=== PATIENT | male | born 1940 | race Caucasian/White ===

== ENCOUNTER → 2016-07-03 | Outpatient (CLI) | payer MEDICARE, OTHER ==
--- NOTE | 2016-07-03 11:08 | FL ---
ESOPHOGRAM. HISTORY: Dysphagia Esophagram was performed per the air contrast technique. The patient swallowed barium and effervesce nt crystals without difficulty or delay. Esophageal peristalsis and motility appear to be within normal limits. There is no evidence for filling defect or mass. 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 Subsequently single contrast cervical esophagram was performed which demonstrates deep penetration wi th mild aspiration. Hypertrophy of the cricopharyngeus musculature is noted. IMPRESSION: 1.Deep penetration with mild aspiration. 2.Hypertrophy of the cricopharyngeus musculature is noted. 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
--- NOTE | 2016-07-03 11:43 | ECHOS ---
DATE OF SERVICE: 07/03/2016 AGE: 75Y SEX: M HT: 74" WT: 205 lbs. Protocol Dawson: X Others: Stress Echo Stage: 2 Dur. of Exercise: 5:00 *Heart Rate Blood Pressure *Rest: 69 Rest: 154/61 * *Max. Achieved: 137 Maximum BP: 196/75 85% PMHR: 124 100% PMHR: 146 *METS: 6.3 INDICATIONS: Chest pain. MEDICATIONS: Aspirin. The test is being done to evaluate cardiac status and chest pains. Baseline EKG showed sinus rhythm with normal MS interval and QRS duration. Blood pressure at rest is 154/61 with a pulse rate of 69. Patient walked on the Dawson protocol for 5 minutes achieving a maximum heart rate of 137 with blood pressure of 196/75. ECHO DATA: Baseline echo images show normal wall motion and thickening. Exercise echo images showed augmentation of the wall motion and thickening in all the segments. FINAL IMPRESSION: 1. Negative stress test. 2. Negative stress echo.
== END | disposition home or self-care (01) ==
LOC: RADNMMAIN 09:10
PROVIDERS: ATTEND Family Medicine
DX: R07.9 Chest pain, unspecified (principal); K44.9 Diaphragmatic hernia without obstruction or gangrene; K22.5 Diverticulum of esophagus, acquired
CPT/HCPCS: 74220; 93017; 93225; 93226; 93350

== ENCOUNTER 2017-02-27 10:25 | Day surgery (SDC) | payer MEDICARE, OTHER ==
[2017-02-25 09:25] VITALS: BMI 25.9
[~2017-02-27 10:25] MED LIST: DEXAMETHASONE SOD PHOSPHATE 10 MG/ML 1 ML VIAL IV ONE; DEXAMETHASONE SOD PHOSPHATE 4 MG/ML 1 ML VIAL IV ONE; FAMOTIDINE 20 MG/2 ML VIAL IV ONE; HYDROmorphone 1 MG/ML 1 ML SYRINGE IVP PRN; LACTATED RINGERS 1,000 ML IV SCH; ONDANSETRON 4 MG/2 ML VIAL IVP ONE; Pre Op ABX Message 1 EACH MISC MISCELLANE ONE
[2017-02-27] MEDS ORDERED: LIDOCAINE 1% 20 ML VIAL (10MG/ML) FOR IV START INTRADERMA ONE (11:24)
[2017-02-27] MEDS ORDERED: MIDAZOLAM 2 MG/2 ML VIAL ONE (13:26)
[2017-02-27] MEDS ORDERED: PROPOFOL 10 MG/ML 20 ML VIAL IV ONE (13:26)
[2017-02-27] MEDS ORDERED: ePHEDrine SULFATE/0.9% NACL/PF 50 MG/5 ML SYRINGE IV ONE (13:26)
[2017-02-27] MEDS ORDERED: SUCCINYLCHOLINE CHLORIDE 100 MG/5 ML SYR IV ONE (13:26)
[2017-02-27] MEDS ORDERED: fentaNYL (PF) 50 MCG/ML 2 ML AMP ONE (13:26)
[2017-02-27] MEDS ORDERED: LIDOCAINE 1% INJ 10MG/ML (20 ML MDV) ONE (13:26)
[2017-02-27] MEDS ORDERED: DEXAMETHASONE SOD PHOS (MDV) 100 MG/10 ML VIAL ONE (13:26)
[2017-02-27] MEDS ORDERED: LACTATED RINGERS 1,000 ML IV ONE (13:50)
[2017-02-27] MEDS ORDERED: LIDOCAINE 2%-EPI 1:100,000 20 ML VIAL SQ ONE (13:58)
[2017-02-27] MEDS ORDERED: BACITRACIN 500 UNIT/GM OINT 28.4 GM TUBE TOPICAL ONE (14:11)
[2017-02-27 15:06] VITALS: TEMP 97.4
[2017-02-27] MEDS ORDERED: hydrALAZINE HCL 20 MG/ML 1 ML VIAL IVP PRN (15:13)
[2017-02-27] MEDS ORDERED: ENALAPRILAT 1.25 MG/ML 1 ML VIAL IVP STA (15:13)
[2017-02-27] MEDS ORDERED: LABETALOL 5 MG/ML VIAL MDV IVP STA (15:15)
[2017-02-27] MEDS ORDERED: LABETALOL SYRINGE 5 MG/ML IVP ONE (15:20)
--- NOTE | 2017-02-27 15:36 | P.OP ---
Date of Procedure: 02/27/17 Preoperative Diagnosis: 2.2 cm right neck lesion 2.3 cm left holiness lesion Dysphagia Nasopharyngeal mass Cricopharyngeal achlasia Postoperative Diagnosis: Same Procedure(s) Performed: Excision of a 2.3 cm left holiness lesion and a 2.2 cm right neck lesion with complex closure Direct microscopic laryngoscopy with biopsy, post cricoid Esophagoscopy with dilitation Endoscopic biopsy of nasopharyx with cautery. Anesthesia: GETA Surgeon: Mauri Payan Estimated Blood Loss (ml): 20 Pathology: other (skin lesions and post cricoid space) Condition: stable Disposition: PACU Indications for Procedure: This patient has 2 lesions that are growing changing. One is of the left holiness was of the right posterior neck and he would like to have them removed. Patient also has some significant dysphagia from achalasia and a dilatation and examination is recommended with a possible biopsy. 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 Surgical removal for biopsy purposes and electrofulguration is advised. All risks, benefits, and alternative therapies were discussed in detail. Consent was obtained and all questions were answered. Operative Findings: Bilateral skin lesions left holiness right neck along with inflammation the postcricoid space and a tight cricopharyngeus. Nasopharyngeal ulceration seen which was biopsied electrofulgurated. Description of Procedure: This patient was taken to the operative room and placed in the supine position. A general inhalation anesthetic was administered the patient by mask and subsequently intubated with a cuffed endotracheal tube by the department of anesthesia with a functioning IV line in place. The patient was monitored throughout the entire case by the department of anesthesia. These 2 lesions were marked left holiness right neck the left holiness lesion measured 2.3 cm right neck lesion measured 2.2 cm there were removed with a 15 blade delicate plastic scissors and a Brown-Adsalissa forceps. We sent him for permanent section. We did extensive undermining in all directions. After we did extensive undermining in all directions we removed redundant skin and prepped the skin edges. We closed the deep subcutaneous tissue with 4-0 Monocryl we closed the deep dermal layer with 4-0 Monocryl we closed the mid dermal layer with 4-0 Monocryl and closed the skin with a 5-0 Prolene. Excellent approximation was obtained this was done on both lesions and the exact same fashion. Steri-Strips were applied. Attention was then paid to the mouth where tooth guard was placed and a Jako laryngoscope was placed into the patient's mouth with care to avoid any trauma to the lips teeth gums and tongue ulcers open tongue was depressed and the entire Jose and hypopharynx was evaluated including the posterior pharynx lateral pharynx base of tongue vallecula epiglottis etc. after examination under microscopic visualization we did a biopsy the postcricoid space. Instrumentation was removed and an esophagoscope was inserted and the entire length of the esophagus was evaluated from the upper esophageal sphincter to the lower esophageal sphincter. The upper esophageal sphincter the cricopharyngeus muscle was extremely tight the scope was removed and we did bougienage location. After the upper esophagus underwent a bougienage. And instrumentation was removed, attention was then paid to the nasopharynx were with use of an endoscope we visualize the nasopharynx and found there to be an ulcer which was biopsied. With use of suction coagulation that whole area was electrofulgurated. The patient tolerated this well and follow-up will be in the office in 1 week for recheck the patient is to contact me if any problems should arise.
[2017-02-27] MEDS ORDERED: LABETALOL 5 MG/ML VIAL MDV IV ONE (16:19)
[2017-02-27 16:26] VITALS: RESP 18
[2017-02-27] MEDS ORDERED: hydrALAZINE HCL 20 MG/ML 1 ML VIAL IV ONE (17:05)
[2017-02-27] MEDS ORDERED: IBUPROFEN 600 MG TAB PO STA (17:20)
[2017-02-27 17:58] VITALS: BP 157/76; PULSE 79
--- NOTE | 2017-03-05 14:02 | CDI ---
Dear Dr. Payan, Please provide clarification of the length of the complex repair for both the neck and presybeterian lesions. The report states that extensive undermining was performed along with removing redundant skin which fits the description of complex repair. In order to provide the correct coding, please provide clarification. PLEASE RESPOND TO THIS QUERY BY DICTATING AN ADDENDUM TO YOUR OPERATIVE REPORT. Thank you for your assistance, CATIE Gore If you have any questions, please contact Heddler, Nikki Delong at [facility]
--- NOTE | 2017-03-25 05:47 | CDI ---
Dear Dr. Payan, Please provide clarification of the length of the complex repair for both the neck and jew lesions. The reort states that extensive underminng was performed along with removing redundant skin which fits the description of complex repair. In order to provide the corection coding, please provide clarification. PLEASE RESPOND TO THIS QUERY BY DICTATING AN ADDENDUM TO YOUR OPERATIVE REPORT. Thank you for your assistance, CATIE Gore If you have any questions, please contact Head Men'S Golf Coach, Nikki Delong at [phone] [facility]
--- NOTE | 2017-04-12 06:05 | CDI ---
Dear Dr. Payan, Please provide clarification of the length of the complex repair for both the neck and yazidi lesions. The report states that extensive undermining was performed along with removing redundant skin which fits the description of complex repair. In order to provide the correction coding, please provide clarification. PLEASE RESPOND TO THIS QUERY BY DICTATING AN ADDENDUM TO YOUR OPERATIVE REPORT. Thank you for your assistance, CATIE Gore If you have any questions, please contact Carding Supervisor, Nikki Delong at [phone] [facility]
--- NOTE | 2017-04-12 14:01 | OP ---
OPERATIVE REPORT ADDENDUM: DATE OF SERVICE: February 27, 2017. OPERATIVE NOTE ADDENDUM: This patient had 2 lesions removed, 1 was from the right neck and 1 was from the left alevism. The right neck lesion measured 2.2 x 1 cm. This underwent excision with a 15 blade. We did extensive undermining in all directions. We prepped the skin edges and closed this in a complex fashion after extensive undermining. We closed this with several layer closure utilizing 4-0 Monocryl in the subcutaneous tissue 4-0 Monocryl in a deep dermal layer, 4-0 Monocryl in the mid dermal layer and closed with a nylon superficially. The left alevism lesion measured 2.3 x 1.5 cm. We also excised this with a 15 blade delicate plastic scissors and Brown Adson forceps. We did extensive undermining in all directions. We closed the deep dermal layer in the same fashion as the previous lesion that was closed. Excellent approximation was obtained. The patient tolerated that well. Wound care instructions were given to her. Steri-Strips were applied. MMODL / IJN: [id number] /
== END 2017-02-27 18:06 | disposition home or self-care (01) ==
LOC: OR 10:25
PROVIDERS: ATTEND Otolaryngology
DX: D23.39 Other benign neoplasm of skin of other parts of face (principal); L57.0 Actinic keratosis; L57.8 Other skin changes due to chronic exposure to nonionizing radiation; L81.4 Other melanin hyperpigmentation; K22.0 Achalasia of cardia; J39.2 Other diseases of pharynx; I48.91 Unspecified atrial fibrillation; I10 Essential (primary) hypertension; E78.00 Pure hypercholesterolemia, unspecified; K21.9 Gastro-esophageal reflux disease without esophagitis; Z79.82 Long term (current) use of aspirin; Z79.2 Long term (current) use of antibiotics; Z79.52 Long term (current) use of systemic steroids; Z79.899 Other long term (current) drug therapy; Z88.1 Allergy status to other antibiotic agents; Z88.5 Allergy status to narcotic agent; Z88.0 Allergy status to penicillin; Z91.011 Allergy to milk products; Z91.09 Other allergy status, other than to drugs and biological substances
CPT/HCPCS: 31535; 43220; 11443 ×2; 13132; 88305; J2250; J0360; J1100 ×2; J2405; J2001; J3010; J0330; J2704

== ENCOUNTER 2017-10-07 06:43 | Day surgery (SDC) | payer MEDICARE, OTHER ==
[2017-09-30 15:09] VITALS: BMI 25.7
[~2017-10-07 06:43] MED LIST changes: -DEXAMETHASONE SOD PHOSPHATE 10 MG/ML 1 ML VIAL IV ONE; -DEXAMETHASONE SOD PHOSPHATE 4 MG/ML 1 ML VIAL IV ONE; -FAMOTIDINE 20 MG/2 ML VIAL IV ONE; -HYDROmorphone 1 MG/ML 1 ML SYRINGE IVP PRN; +LIDOCAINE 1% 20 ML VIAL (10MG/ML) FOR IV START INTRADERMA PRN; -ONDANSETRON 4 MG/2 ML VIAL IVP ONE; -Pre Op ABX Message 1 EACH MISC MISCELLANE ONE
[2017-10-07 07:14] VITALS: RESP 16; TEMP 99
[2017-10-07] MEDS: PHENYLEPHRINE 10% OPHTH DROPS 5 ML BTL OP ONE ×3 (07:20→07:41)
[2017-10-07] MEDS: CYCLOPENTOLATE 1% OPHTH SOLN 2 ML BTL OP ONE ×3 (07:27→07:45)
[2017-10-07] MEDS ORDERED: LIDOCAINE 1% 20 ML VIAL (10MG/ML) FOR IV START INTRADERMA ONE (07:28)
[2017-10-07] MEDS: FLURBIPROFEN 0.03% OPHTH DROPS 2.5 ML BTL OP ONE ×3 (07:30→07:55)
[2017-10-07] MEDS ORDERED: MIDAZOLAM 2 MG/2 ML VIAL IV ONE (07:56)
[2017-10-07] MEDS ORDERED: LACTATED RINGERS 1,000 ML IV ONE (08:09)
[2017-10-07] MEDS ORDERED: PROPOFOL 10 MG/ML 20 ML VIAL IV ONE (08:11)
[2017-10-07] MEDS ORDERED: EPINEPHrine (PF) 0.5 ML in BALANCED SALT IRRIG SOLN COMB2 500 ML IRRIGATION ONE (08:24)
[2017-10-07] MEDS ORDERED: HYALURONATE SODIUM INTRAOCULAR 1 EACH SYRINGE (10MG/ML) INTRAOCULA ONE (08:24)
[2017-10-07] MEDS ORDERED: BALANCED SALT IRRIG SOLN COMB2 15 ML IRRIG.SOLN INTRAOCULA ONE (08:24)
--- NOTE | 2017-10-07 08:32 | P.OP ---
Date of Procedure: 10/07/17 Procedure(s) Performed: PREOPERATIVE DIAGNOSIS: Cataract, left eye. POSTOPERATIVE DIAGNOSIS: Cataract, leftl eye. OPERATION: Phacoemulsification cataract, left] eye. DESCRIPTION OF PROCEDURE: The patient was taken to the preoperative holding area. Intravenous Propofol was given so as to bring about adequate sedation. The following mixture was given for local anesthesia: 5 mL of 2% lidocaine, 5 mL of 0.75% Marcaine, and 1 mL of Wydase. Approximately 4 mL was injected in the retrobulbar space of the surgical eye. Additional 1 mL was then directed to the temporal area of the surgical eye. This was performed to allow adequate neurological block of the facial muscles. The patient was revived and then taken into the operative room. The patient was prepped and draped in the usual sterile manner for the operative eye. A lid speculum was put into position. The conjunctiva was resected back from the limbus in the 12 o'clock position. Bleeding was controlled with electrocautery. A #69 blade was then used and a half-thickness scleral incision approximately 1-mm posterior to the limbus was made on bare sclera. This was shelved in the clear cornea using a crescent knife. Next a 15-degree blade was used to make a stab incision at the 3 o' clock position at the corneolimbal interface. Keratome blade was then used and the superior wound was extended into the anterior chamber. Viscoelastic was injected into the anterior chamber and to maintain its form. Next, a cystotome was used and a continuous anterior capsulotomy was made without difficulty. Hydrodissection using a blunt cannula and BSS was performed. Phaco probe was then employed and a groove extending from 12 to 6 o'clock in the lens was created. A Mariusz wand was used through the stab incision so as to perform a divide and conquer technique. Next an irrigation aspiration probe was utilized and any residual cortex was removed from the eye. Again, viscoelastic was injected into the anterior chamber. An Gustavo posterior chamber lens implant was placed in the cartridge and injected into the anterior chamber without difficulty. The Sinskey hook was utilized to spin the lens into position and this was again performed without any difficulty. The irrigation and aspiration probe was again employed and any residual viscoelastic was removed from the eye. Then BSS was injected into the limbal stab incision and the anterior chamber re-inflated. The conjunctiva was reapproximated using electrocautery. One drop of 0.25% Timoptic was placed over the corneal along with TobraDex ophthalmic ointment. Two sterile patches and a Guzman eye shield were taped into position. The patient was transported to the recovery room in stable condition. Pathology: none sent Condition: stable Disposition: same day
[2017-10-07 08:53] VITALS: BP 198/98; PULSE 60
[2017-10-07] MEDS ORDERED: BUPIVACAINE (PF) 0.75% 5 ML, HYALURONIDASE, HUMAN RECOMB 150 UNIT, LIDOCAINE 2% (PF) 10... MISCELLANE ONE ×3 (23:00)
[2017-10-07] MEDS ORDERED: GENTAMICIN/PREDNISOL AC OPHTH OINT 3.5GM OPHTHALMIC ONE (23:00)
[2017-10-07] MEDS ORDERED: TIMOLOL 0.5% OPHTH DROPS 5 ML BTL OP ONE (23:00)
== END 2017-10-07 09:10 | disposition home or self-care (01) ==
LOC: OR 06:43
PROVIDERS: ATTEND Ophthalmology
DX: H25.12 Age-related nuclear cataract, left eye (principal); I10 Essential (primary) hypertension; E78.5 Hyperlipidemia, unspecified; K21.9 Gastro-esophageal reflux disease without esophagitis; Z79.82 Long term (current) use of aspirin; Z79.899 Other long term (current) drug therapy; Z88.1 Allergy status to other antibiotic agents; Z88.0 Allergy status to penicillin; Z88.5 Allergy status to narcotic agent
CPT/HCPCS: 66984; V2632; J2250; J3470; J2001; J0171; J2704

== ENCOUNTER 2017-11-11 06:48 | Day surgery (SDC) | payer MEDICARE, OTHER ==
[2017-11-04 11:32] VITALS: BMI 25.5
[~2017-11-11 06:48] MED LIST changes: +GENTAMICIN/PREDNISOL AC OPHTH OINT 3.5GM OPHTHALMIC ONE; -LIDOCAINE 1% 20 ML VIAL (10MG/ML) FOR IV START INTRADERMA PRN; +TIMOLOL 0.5% OPHTH DROPS 5 ML BTL OP ONE
[2017-11-11 07:12] VITALS: TEMP 97.6
[2017-11-11] MEDS: PHENYLEPHRINE 10% OPHTH DROPS 5 ML BTL OP ONE ×4 (07:15→07:42)
[2017-11-11] MEDS: CYCLOPENTOLATE 1% OPHTH SOLN 2 ML BTL OP ONE ×3 (07:18→07:44)
[2017-11-11] MEDS: FLURBIPROFEN 0.03% OPHTH DROPS 2.5 ML BTL OP ONE ×3 (07:27→07:49)
[2017-11-11] MEDS ORDERED: LABETALOL 5 MG/ML VIAL MDV IV ONE (07:35)
[2017-11-11] MEDS: BUPIVACAINE (PF) 0.75% 5 ML, HYALURONIDASE, HUMAN RECOMB 150 UNIT, LIDOCAINE 2% (PF) 10... MISCELLANE ONE ×6 (08:27→08:35)
[2017-11-11] MEDS ORDERED: BALANCED SALT IRRIG SOLN COMB2 15 ML IRRIG.SOLN IRRIGATION ONE (08:27)
[2017-11-11] MEDS ORDERED: HYALURONATE SODIUM INTRAOCULAR 1 EACH SYRINGE (10MG/ML) INTRAOCULA ONE (08:27)
[2017-11-11] MEDS ORDERED: PROPOFOL 10 MG/ML 20 ML VIAL IV ONE (08:29)
[2017-11-11] MEDS ORDERED: EPINEPHrine (PF) 0.5 ML in BALANCED SALT IRRIG SOLN COMB2 500 ML IRRIGATION ONE (08:32)
--- NOTE | 2017-11-11 08:52 | P.OP ---
Date of Procedure: 11/11/17 Procedure(s) Performed: PREOPERATIVE DIAGNOSIS: Cataract, right eye. POSTOPERATIVE DIAGNOSIS: Cataract, right eye. OPERATION: Phacoemulsification cataract, right eye. DESCRIPTION OF PROCEDURE: The patient was taken to the preoperative holding area. Intravenous Propofol was given so as to bring about adequate sedation. The following mixture was given for local anesthesia: 5 mL of 2% lidocaine, 5 mL of 0.75% Marcaine, and 1 mL of Wydase. Approximately 4 mL was injected in the retrobulbar space of the surgical eye. Additional 1 mL was then directed to the temporal area of the surgical eye. This was performed to allow adequate neurological block of the facial muscles. The patient was revived and then taken into the operative room. The patient was prepped and draped in the usual sterile manner for the operative eye. A lid speculum was put into position. The conjunctiva was resected back from the limbus in the 12 o'clock position. Bleeding was controlled with electrocautery. A #69 blade was then used and a half-thickness scleral incision approximately 1-mm posterior to the limbus was made on bare sclera. This was shelved in the clear cornea using a crescent knife. Next a 15-degree blade was used to make a stab incision at the 3 o' clock position at the corneolimbal interface. Keratome blade was then used and the superior wound was extended into the anterior chamber. Viscoelastic was injected into the anterior chamber and to maintain its form. Next, a cystotome was used and a continuous anterior capsulotomy was made without difficulty. Hydrodissection using a blunt cannula and BSS was performed. Phaco probe was then employed and a groove extending from 12 to 6 o'clock in the lens was created. A Mariusz wand was used through the stab incision so as to perform a divide and conquer technique. Next an irrigation aspiration probe was utilized and any residual cortex was removed from the eye. Again, viscoelastic was injected into the anterior chamber. An Gustavo posterior chamber lens implant was placed in the cartridge and injected into the anterior chamber without difficulty. The [employer] hook was utilized to spin the lens into position and this was again performed without any difficulty. The irrigation and aspiration probe was again employed and any residual viscoelastic was removed from the eye. Then BSS was injected into the limbal stab incision and the anterior chamber re-inflated. The conjunctiva was reapproximated using electrocautery. One drop of 0.25% Timoptic was placed over the corneal along with TobraDex ophthalmic ointment. Two sterile patches and a Guzman eye shield were taped into position. The patient was transported to the recovery room in stable condition. Pathology: none sent Condition: stable Disposition: same day
[2017-11-11 08:59] VITALS: RESP 18
[2017-11-11] MEDS ORDERED: hydrALAZINE HCL 20 MG/ML 1 ML VIAL IVP ONE (09:27)
[2017-11-11 10:19] VITALS: BP 208/97; PULSE 59
== END 2017-11-11 10:29 | disposition home or self-care (01) ==
LOC: OR 06:48
PROVIDERS: ATTEND Ophthalmology
DX: H25.11 Age-related nuclear cataract, right eye (principal); H18.51 Endothelial corneal dystrophy; I10 Essential (primary) hypertension; E78.5 Hyperlipidemia, unspecified; Z87.891 Personal history of nicotine dependence; I48.91 Unspecified atrial fibrillation; K21.9 Gastro-esophageal reflux disease without esophagitis; Z79.899 Other long term (current) drug therapy; Z88.1 Allergy status to other antibiotic agents; Z88.0 Allergy status to penicillin
CPT/HCPCS: 66984; V2632; J3470; J0360; J2001; J0171; J2704

== ENCOUNTER → 2017-12-11 | Outpatient (CLI) | payer MEDICARE, OTHER ==
--- NOTE | 2017-12-11 11:20 | ECHOS ---
STRESS ECHOCARDIOGRAM DATE OF SERVICE: 12/11/2017 INDICATIONS: Hypertension. MEDICATIONS: BASELINE HEART RATE: 70 BASELINE BLOOD PRESSURE: 123/87 MAXIMUM HEART RATE: 135 MAXIMUM BLOOD PRESSURE: 184/61 85% MPHR: 122 100% MPHR: 144 METS: 7.3 MAXIMUM STAGE REACHED: II TOTAL EXERCISE TIME: 6 minutes CLINICAL INFORMATION: Baseline EKG revealed normal sinus rhythm without significant ST-T changes. Patient walked on a standard Dawson protocol for 6 minutes, achieved a maximal heart rate of 135 beats per minute. Developed fatigue and shortness of breath, but did not have angina or arrhythmia. EKG did not reveal any ST-segment changes to indicate ischemia. By EKG criteria, this is a negative stress test with limited exercise capacity with rare isolated PVCs. Baseline echo images revealed normal wall motion and wall thickening of all segments. At peak exercise there was good augmentation of left ventricular wall motion and wall thickening of all segments suggesting that there is no evidence of stress-induced ischemia on this study. FINAL IMPRESSION: 1. Fair exercise capacity with a negative stress test by EKG criteria. 2. Negative stress echocardiogram. MMODL / IJN: [id number] /
== END | disposition home or self-care (01) ==
LOC: RADNMMAIN 09:32
PROVIDERS: ATTEND Family Medicine
DX: R06.02 Shortness of breath (principal); R07.9 Chest pain, unspecified; I10 Essential (primary) hypertension; Z88.0 Allergy status to penicillin; Z88.3 Allergy status to other anti-infective agents
CPT/HCPCS: 93351

== ENCOUNTER → 2018-02-05 | Outpatient (CLI) | payer MEDICARE, OTHER ==
--- NOTE | 2018-02-05 11:02 | US ---
EXAMINATION TYPE: US kidneys/renal and bladder DATE OF EXAM: 02/05/2018 COMPARISON: US CLINICAL HISTORY: N28.9 Known Renal Disease. Renal disease EXAM MEASUREMENTS: Right Kidney: 11.1 x 5.7 x 5.6 cm Left Kidney: 12.7 x 5.8 x 5.4 cm Right Kidney: Mild hydro Left Kidney: Mild hydro Bladder: [place] distended Bilateral Jets seen: No Normal Post Void Residual: No, 710 ml No nephrolithiasis is seen. No masses are identified. The urinary bladder is anechoic. Bilateral ureteral jets are seen. IMPRESSION: 1 mild bilateral hydronephrosis noted of uncertain etiology.
== END | disposition home or self-care (01) ==
LOC: RADUSWWP 09:51
PROVIDERS: ATTEND Family Medicine
DX: N13.30 Unspecified hydronephrosis (principal)
CPT/HCPCS: 76770

== ENCOUNTER → 2018-03-12 | Outpatient (CLI) | payer MEDICARE, OTHER ==
--- NOTE | 2018-03-12 14:24 | CT ---
EXAMINATION TYPE: CT chest w con DATE OF EXAM: 03/12/2018 COMPARISON: Chest x-ray 09/13/2014 an ultrasound age [age] HISTORY: Chest pains CT DLP: 331.9 mGycm Automated exposure control for dose reduction was used. CONTRAST: CT scan of the chest is performed with IV Contrast, patient injected with 80 mL of Isovue 300. FINDINGS: LUNGS: The lungs are grossly clear, there is no concerning parenchymal mass or nodule identified. T here is no pleural effusion or pneumothorax seen. The tracheobronchial tree is patent. MEDIASTINUM: There are no greater than 1 cm hilar or mediastinal lymph nodes. There are coronary art cathryn calcifications present. No pericardial effusion is seen. Pulmonary artery is prominent, consider pulmonary artery hypertension. AORTA: No additional significant abnormality is seen. For super aortic branch vessels are present. S ome mild atheromatous changes are likely age-related. 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 Bilateral hydronephrosis present within the kidneys. Thoracic spondylosis is present. IMPRESSION: Coronary artery disease. Correlate for possible pulmonary artery hypertension. Bilateral hydronephrosis. Additional findings above.
== END | disposition home or self-care (01) ==
LOC: RADCTMAIN 12:45
PROVIDERS: ATTEND Family Medicine
DX: I25.10 Atherosclerotic heart disease of native coronary artery without angina pectoris (principal); I70.0 Atherosclerosis of aorta; Z88.1 Allergy status to other antibiotic agents; Z88.0 Allergy status to penicillin; Z88.6 Allergy status to analgesic agent; Z88.8 Allergy status to other drugs, medicaments and biological substances
CPT/HCPCS: 82565; 84520; 71260; 36415; Q9967

== ENCOUNTER → 2018-03-16 | Outpatient (CLI) | payer MEDICARE, OTHER ==
--- NOTE | 2018-03-17 13:53 | FL ---
EXAMINATION TYPE: FL barium swallow DATE OF EXAM: 03/16/2018 CLINICAL HISTORY: Dysphagia TECHNIQUE: A double contrast esophagram is performed utilizing air and barium. A total of 1minute a nd 50 seconds time was utilized during procedure. 0 images were saved as the fluoroscopic unit malfu nctioned. COMPARISON: None FINDINGS: The esophagus shows normal motility and emptying into the stomach on upright images, howeve r on supine images tertiary contractions are seen persistently. 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 No evidence of hiatal hernia or stricture noted. No significant gastroesophageal reflux was seen during real time performance of this study. On the upright portion the examination persistent tr cristine penetration with immediate ejection was seen. No laryngeal aspiration was identified. IMPRESSION: 1. Persistent laryngeal penetration without aspiration. Speech therapy consultation may be of benefi t. 2. Tertiary contractions most commonly related to presbyesophagus although these can be seen in neuro muscular disorders. 3. No evidence of significant gastroesophageal reflux, stricture, hiatal hernia, or obstruction.
== END | disposition home or self-care (01) ==
LOC: RADFLWHC 08:35
PROVIDERS: ATTEND Family Medicine
DX: R13.10 Dysphagia, unspecified (principal); Z88.1 Allergy status to other antibiotic agents; Z88.8 Allergy status to other drugs, medicaments and biological substances; Z88.5 Allergy status to narcotic agent; Z88.0 Allergy status to penicillin
CPT/HCPCS: 74220

== ENCOUNTER → 2018-04-17 | Outpatient (CLI) | payer MEDICARE, OTHER ==
[2018-04-17 13:27] LABS: HCT 28.8 % (39.0-53.0); HGB 9.6 gm/dL (13.0-17.5); MCH 29.2 pg (25.0-35.0); MCHC 33.1 g/dL (31.0-37.0); MCV 88.2 fL (80.0-100.0); Mean Platelet Volume 6.7; Platelet Count 218 k/uL (150-450); RBC 3.27 m/uL (4.30-5.90); RDW 14.1 % (11.5-15.5); WBC 7.1 k/uL (3.8-10.6)
[2018-04-17 13:53] LABS: Potassium 4.2 mmol/L (3.5-5.1)
== END | disposition home or self-care (01) ==
LOC: LABPAT 11:57
PROVIDERS: ATTEND Internal Medicine Interventional Cardiology
DX: Z01.812 Encounter for preprocedural laboratory examination (principal); I10 Essential (primary) hypertension; R07.89 Other chest pain
CPT/HCPCS: 80051; 82565; 84520; 85027

== ENCOUNTER → 2018-06-12 | Outpatient (CLI) | payer MEDICARE, OTHER ==
--- NOTE | 2018-06-14 16:07 | US ---
EXAMINATION TYPE: US kidneys/renal and bladder DATE OF EXAM: 06/12/2018 COMPARISON: 02/05/2018 CLINICAL HISTORY: 77-year-old male N13.30 HX HYDRONEPHROSIS. TECHNIQUE: Multiple sonographic images of the kidneys and bladder are obtained. FINDINGS: EXAM MEASUREMENTS: Right Kidney: 10.1 x 4.5 x 4.6 cm Left Kidney: 11.0 x 5.7 x 5.1 cm Right Kidney: Possible inferior mild hydronephrosis Left Kidney: wnl, no hydronephrosis visualized Bladder: distended. Wall- 3.9 mm Bilateral Jets seen IMPRESSION: 1. Residual mild hydronephrosis on the right shows some improvement from 02/05/2018. 2. The previous left-sided hydronephrosis has resolved.
== END | disposition home or self-care (01) ==
LOC: RADUSWWP 15:28
PROVIDERS: ATTEND Urology
DX: N13.30 Unspecified hydronephrosis (principal)
CPT/HCPCS: 76770

== ENCOUNTER → 2018-06-24 | Outpatient (CLI) | payer MEDICARE, OTHER | END | disposition home or self-care (01) | LOC: LABWHC1 13:31 | PROVIDERS: ATTEND Ophthalmology Ophthalmic Plastic and Reconstructive Surgery | DX: H53.2 Diplopia (principal) | CPT/HCPCS: 36415; 83519 ==

== ENCOUNTER → 2018-07-20 | Outpatient (CLI) | payer MEDICARE, OTHER ==
--- NOTE | 2018-07-20 15:33 | US ---
EXAMINATION TYPE: US scrotum with doppler. Grayscale and color Doppler Duplex imaging performed of t he scrotum. DATE OF EXAM: 07/20/2018 COMPARISON: NONE CLINICAL HISTORY: N50.9 R epididymal/testicular mass. EXAM MEASUREMENTS: TESTICLES: Right Testicle: 3.8 x 2.6 x 3.4 cm Left Testicle: 3.9 x 2.4 x 2.9 cm EPIDIDYMIS HEAD: Right Epididymis: 0.6 cm Left Epididymis: 1.2 cm Doppler performed to assess for testicular vascularity; good bilateral color flow and waveforms are s een. There is no evidence of testicular torsion. Presence of hydroceles: right measuring 2.6 x 1.2 x 3.9 Presence of varicoceles: no Left scrotal cyst measuring 0.3 x 0.2 x 0.2cm Prominent right epididymis with increased vascularity. IMPRESSION: 1. Correlate for right epididymitis
== END | disposition home or self-care (01) ==
LOC: RADUSWWP 12:52
PROVIDERS: ATTEND Urology
DX: N50.9 Disorder of male genital organs, unspecified (principal)
CPT/HCPCS: 76870; 93975

== ENCOUNTER → 2018-10-30 | Outpatient (CLI) | payer MEDICARE, OTHER ==
--- NOTE | 2018-10-31 13:28 | US ---
EXAMINATION TYPE: US scrotum with doppler. Grayscale and color Doppler Duplex imaging performed of randi hunter scrotum. DATE OF EXAM: 10/30/2018 COMPARISON: Previous dated 07/20/2018 CLINICAL HISTORY: N50.89 Scrotal pain Bilateral. Pain. EXAM MEASUREMENTS: TESTICLES: Right Testicle: 4.4 x 2.9 x 3.2 cm Left Testicle: 3.6 x 2.8 3.3 cm EPIDIDYMIS HEAD: Right Epididymis: 1.1 x 09 x 1.0 cm. Echogenic area seen measuring .5 x .8 x .5cm, indeterminate Left Epididymis: 1.2 x .8 x .9 cm. Anechoic area seen measuring .4 x .4 x .3cm., Probable epididyma l cyst Doppler performed to assess for testicular vascularity. Presence of hydroceles: No Presence of varicoceles: No Bilateral increased vascularity noted within the testes,. Hypoechoic area seen inferior left testicle measuring 1.2 x 1.0 x .9cm. IMPRESSION: Findings may represent epididymo-orchitis
== END ==
LOC: RADUSWWP 16:43
PROVIDERS: ATTEND Urology
DX: N50.82 Scrotal pain (principal); N50.812 Left testicular pain; N50.811 Right testicular pain; Z88.0 Allergy status to penicillin; Z88.8 Allergy status to other drugs, medicaments and biological substances; Z88.5 Allergy status to narcotic agent
CPT/HCPCS: 76870; 93975

== ENCOUNTER 2020-12-14 23:12 | Emergency (ER) | payer MEDICARE, OTHER ==
[2020-12-14 23:22] VITALS: RESP 16; TEMP 98
--- NOTE | 2020-12-15 00:11 | ED ---
General Adult HPI - General Chief complaint: Urogenital Stated complaint: Urogenital Time Seen by Provider: 12/14/20 23:26 Source: patient Mode of arrival: ambulatory Limitations: no limitations - History of Present Illness Initial comments: 80 year-old male patient presents to the emergency department for evaluation of hematuria. States that he does self catheterization and occasionally has a traumatic insertion or removal. States this morning he accidentally pulled it out too quick which he thinks caused an injury. He states that he has had adenike red blood throughout the day. Did have a small blood clot. He does take eliquis. States that he had elevated blood pressure over 200 systolic this evening so he came in for evaluation. States he did take his metoprolol and lisinopril this evening. He held his eliquis and baby aspirin. Denies any dizziness or weakness. Patient denies any recent rash, fever, chills, cough, shortness of breath, chest pain, abdominal pain, nausea, vomiting, diarrhea, constipation, back pain, numbness, tingling, hematuria, dysuria, urinary urgency, urinary frequency, headache, visual changes, or any other complaints. - Related Data Home Medications Medication Instructions Recorded Confirmed Omeprazole 20 mg PO DAILY 02/25/17 04/22/18 Aspirin 81 mg PO DAILY 09/30/17 04/22/18 Multivitamins, Thera [Multivitamin 1 tab PO DAILY 09/30/17 04/22/18 (formulary)] Benazepril [Lotensin] 30 mg PO DAILY 04/17/18 04/22/18 Doxazosin [Cardura] 4 mg PO DAILY 04/17/18 04/22/18 Isosorbide Mononitrate ER [Imdur] 30 mg PO DAILY 04/17/18 04/22/18 Metoprolol Tartrate [Lopressor] 25 mg PO BID 04/17/18 04/22/18 Previous Rx's Medication Instructions Recorded Atorvastatin [Lipitor] 80 mg PO HS #90 tab 04/23/18 Clopidogrel [Plavix] 75 mg PO DAILY #90 tab 04/23/18 Allergies Allergy/AdvReac Type Severity Reaction Status Date / Time cephalexin monohydrate Allergy Dyspnea- Verified 12/14/20 23:20 [From Keflex] WHEEZING hydrocodone [From Vicodin] Allergy NIGHTMARES Verified 12/14/20 23:20 hydromorphone [From Dilaudid] Allergy Hallucinati Verified 12/14/20 23:20 ons Penicillins Allergy Rash/Hives Verified 12/14/20 23:20 ANTIBACTERIAL SOAP Allergy Unknown Rash/Hives Uncoded 12/14/20 23:20 Review of Systems ROS Statement: Those systems with pertinent positive or pertinent negative responses have been documented in the HPI. ROS Other: All systems not noted in ROS Statement are negative. Past Medical History Past Medical History: Atrial Fibrillation, GERD/Reflux, Hyperlipidemia, Hypertension Additional Past Medical History / Comment(s): HX HEART MURMUR, A-FIB X1 , HTN (NO MEDS), RUPTURED DIVERTICULUM., BACK PAIN (SEES CHIROPRACTOR PRN)., STATES OCCASIONAL SOB., BILATERAL CATARACTS Surgery. 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 Past Anesthesia/Blood Transfusion Reactions: No Reported Reaction Past Psychological History: No Psychological Hx Reported Smoking Status: Never smoker Past Alcohol Use History: Occasional Past Drug Use History: None Reported - Past Family History Mother Family Medical History: No Reported History Additional Family Medical History / Comment(s): "Patient states she of a heart attack" Father Family Medical History: Cancer, Coronary Artery Disease (CAD) General Exam Limitations: no limitations General appearance: alert, in no apparent distress, other (This is well- developed, well-nourished elderly male patient in no acute distress. Vital signs upon presentation temperature 98.2F, pulse 62, respirations 16, blood pressure 147/87, pulse ox 98% on room air.) Respiratory exam: Present: normal lung sounds bilaterally. Absent: respiratory distress, wheezes, rales, rhonchi, stridor Cardiovascular Exam: Present: regular rate, normal rhythm, normal heart sounds. Absent: systolic murmur, diastolic murmur, rubs, gallop, clicks GI/Abdominal exam: Present: soft, normal bowel sounds. Absent: distended, tenderness, guarding, rebound, rigid Neurological exam: Present: alert, oriented X3, CN II-XII intact Psychiatric exam: Present: normal affect, normal mood Skin exam: Present: warm, dry, intact, normal color. Absent: rash Course Vital Signs 12/14/20 23:20 Temperature 98 F Pulse Rate 62 Respiratory 16 Rate Blood Pressure 147/87 O2 Sat by Pulse 98 Oximetry Medical Decision Making - Medical Decision Making 80 year-old male patient presents for hematuria after a traumatic self catheterization. Physical exam unremarkable. Urinalysis shows large amount of blood. This is sent for culture. BP did improve here in the ED. He is instructed to hold eliquis for two days. Follow-up with his urologist on Friday continues to have problems. Return parameters were discussed in detail. He verbalizes understanding and agrees with this plan. Case discussed with my attending Dr. Pressley. - Lab Data Result diagrams: 12/14/20 23:38 Lab Results 12/14/20 12/14/20 12/14/20 Range/Units 23:38 23:38 23:51 WBC 6.7 (3.8-10.6) k/uL RBC 4.25 L (4.30-5.90) m/uL Hgb 13.0 (13.0-17.5) gm/dL Hct 36.7 L (39.0-53.0) % MCV 86.4 (80.0-100.0) fL MCH 30.6 (25.0-35.0) pg MCHC 35.4 (31.0-37.0) g/dL RDW 13.1 (11.5-15.5) % Plt Count 178 (150-450) k/uL MPV 7.5 Neutrophils % 65 % Lymphocytes % 20 % Monocytes % 7 % Eosinophils % 4 % Basophils % 1 % Neutrophils # 4.3 (1.3-7.7) k/uL Lymphocytes # 1.4 (1.0-4.8) k/uL Monocytes # 0.5 (0-1.0) k/uL Eosinophils # 0.3 (0-0.7) k/uL Basophils # 0.1 (0-0.2) k/uL PT 10.7 (9.0-12.0) sec INR 1.0 (<1.2) APTT 25.8 (22.0-30.0) sec Urine Color Dark Red Urine Appearance Bloody (Clear) Urine RBC >182 H (0-5) /hpf Urine WBC 66 H (0-5) /hpf Disposition Clinical Impression: Hematuria Disposition: HOME SELF-CARE Condition: Good Instructions (If sedation given, give patient instructions): Hematuria (ED) Additional Instructions: Do not take your eliquis for the next two days. Follow up with your primary care physician for recheck in 1-2 days. Return to the emergency department for any new, worsening, or concerning symptoms. Is patient prescribed a controlled substance at d/c from ED?: No Referrals: Greg Mann MD [Primary Care Provider] - 1-2 days Time of Disposition: 01:00
[2020-12-15 00:13] LABS: Basophils # (A) 0.1 k/uL (0-0.2); Basophils % (A) 1 %; Eosinophils # (A) 0.3 k/uL (0-0.7); Eosinophils % (A) 4 %; HCT 36.7 % (39.0-53.0); Lymphocytes # (A) 1.4 k/uL (1.0-4.8); Lymphocytes % (A) 20 %; MCH 30.6 pg (25.0-35.0); MCHC 35.4 g/dL (31.0-37.0); MCV 86.4 fL (80.0-100.0); Mean Platelet Volume 7.5; Monocytes # (A) 0.5 k/uL (0-1.0); Monocytes % (A) 7 %; Neutrophils # (A) 4.3 k/uL (1.3-7.7); Neutrophils % (A) 65 %; Platelet Count 178 k/uL (150-450); RBC 4.25 m/uL (4.30-5.90); RDW 13.1 % (11.5-15.5); WBC 6.7 k/uL (3.8-10.6)
[2020-12-15 00:43] LABS: Partial Thromboplastin Time 25.8 sec (22.0-30.0); Prothrombin Time 10.7 sec (9.0-12.0)
[2020-12-15 00:44] LABS: WBC,Urine 66 /hpf (0-5)
[2020-12-15 00:49] LABS: Appearance,Urine Bloody (Clear)
[2020-12-15 00:50] LABS: Color,Urine Dark Red; RBC,Urine >182 /hpf (0-5)
[2020-12-15 01:06] VITALS: BP 177/93; PULSE 56
== END 2020-12-15 01:10 | disposition home or self-care (01) ==
LOC: EC 23:12
DX: R31.9 Hematuria, unspecified (principal); I10 Essential (primary) hypertension; E78.5 Hyperlipidemia, unspecified; I48.91 Unspecified atrial fibrillation; K21.9 Gastro-esophageal reflux disease without esophagitis; Z79.02 Long term (current) use of antithrombotics/antiplatelets; Z79.01 Long term (current) use of anticoagulants; Z79.82 Long term (current) use of aspirin; Z88.0 Allergy status to penicillin; Z88.1 Allergy status to other antibiotic agents; Z88.5 Allergy status to narcotic agent
CPT/HCPCS: 36415; 81001; 85025; 85610; 85730; 87086; 99283

== ENCOUNTER → 2021-02-23 | Outpatient (CLI) | payer MEDICARE, OTHER ==
--- NOTE | 2021-02-23 11:08 | US ---
EXAMINATION TYPE: US kidneys/renal and bladder DATE OF EXAM: 02/23/2021 COMPARISON: 06/12/2018 US CLINICAL HISTORY: N13.30 Unspecified hydronephrosis. EXAM MEASUREMENTS: Right Kidney: 10.2x4.5x5.2 cm Left Kidney: 11.3x5.0x4.6 cm Right Kidney: wnl Left Kidney: wnl Bladder: Non distended Bilateral Jets seen: Non distended No hydronephrosis or nephrolithiasis. IMPRESSION: No evidence of hydronephrosis or nephrolithiasis. Bladder is decompressed and limited in assessment. Correlate for prostate enlargement.
== END | disposition home or self-care (01) ==
LOC: RADUSWWP 10:14
PROVIDERS: ATTEND Urology
DX: N13.30 Unspecified hydronephrosis (principal)
CPT/HCPCS: 76770

== ENCOUNTER → 2021-05-17 | Outpatient (CLI) | payer MEDICARE ==
--- NOTE | 2021-05-17 15:48 | US ---
EXAMINATION TYPE: US scrotum with doppler. Grayscale and color Doppler Duplex imaging performed of randi hunter scrotum. DATE OF EXAM: 05/17/2021 COMPARISON: US 2019 CLINICAL HISTORY: N50.8 SCROTAL SWELLING AND PAIN. Patient denies pain. Patient states that he had extensive swelling that has gone down recently. EXAM MEASUREMENTS: TESTICLES: Right Testicle: 3.4 x 2.7 x 2.9cm Left Testicle: 4.7 x 2.5 x 3.4 cm Grossly heterogeneous testicle vs multiple masses with severe increase in vascularity compared to right. EPIDIDYMIS HEAD: Right Epididymis: hyperechoic focus measuring 0.4 x 0.5cm Left Epididymis: 0.9 cm cyst measuring 0.3 cm Doppler performed to assess for testicular vascularity; good bilateral color flow and waveforms are s een. There is no evidence of testicular torsion. Right hydrocele measuring 1.6 x 0.5 x 1.3cm No evidence of varicoceles. IMPRESSION: Right-sided hydrocele
== END | disposition home or self-care (01) ==
LOC: RADUSWWP 14:50
PROVIDERS: ATTEND Urology
DX: N43.3 Hydrocele, unspecified (principal)
CPT/HCPCS: 76870; 93975

== ENCOUNTER → 2021-08-13 | Outpatient (CLI) | payer MEDICARE ==
--- NOTE | 2021-08-13 12:19 | US ---
EXAMINATION TYPE: US scrotum with doppler. Grayscale and color Doppler Duplex imaging performed of randi hunter scrotum. DATE OF EXAM: 08/13/2021 COMPARISON: US 05/17/2021, 10/30/2018 CLINICAL HISTORY: N45.2 ORCHITIS. Orchitis per order. EXAM MEASUREMENTS: TESTICLES: Right Testicle: 4.5 x 2.9 x 2.1 cm Left Testicle: 3.8 x 2.5 x 1.7 cm. Appears very heterogeneous as seen on last exam. There is not sig nificant increased color flow, color flow has decreased dramatically in the interval, size of the ritika tis has decreased EPIDIDYMIS HEAD: Right Epididymis: 0.8 x 1.3 x 1.0 cm.Hyperechoic area seen: 0.7 x 0.6 x 0.7 cm. Left Epididymis: 1.1 x 1.5 x 1.0 cm. Anechoic area seen: 0.7 x 0.6 x 0.4 cm. Doppler performed to assess for testicular vascularity; bilateral color flow and waveforms are seen. Testicular echotexture is normal on the right. Presence of hydroceles: Right: 2.9 x 2.7 x 0.6 cm. Presence of varicoceles: Prominent vessels seen laterally on the left measuring 3.4 mm. Skin thickness measures 0.9 cm. IMPRESSION: Abnormal left testis as noted on prior exam, findings may be secondary to orchitis, diffi cult to exclude underlying tumor, there is left-sided varicocele, testis has decreased in size and va scularity as compared to prior. Possible epididymal cyst on the right, there is a small right hydroce le. Additional findings above.
== END | disposition home or self-care (01) ==
LOC: RADUSWWP 10:47
PROVIDERS: ATTEND Urology
DX: N45.2 Orchitis (principal); I86.1 Scrotal varices; N43.3 Hydrocele, unspecified
CPT/HCPCS: 76870; 93975

== ENCOUNTER → 2021-10-22 | Outpatient (CLI) | payer MEDICARE ==
--- NOTE | 2021-10-23 08:45 | CT ---
EXAMINATION TYPE: CT angio neck DATE OF EXAM: 10/22/2021 HISTORY: OCCLUSION AND STENOSIS PRECEREBRAL ARTERIES. COMPARISON: None CT DLP: 456 mGycm. Automated Exposure Control for Dose Reduction was Utilized. TECHNIQUE: CTA scan of the neck is performed with IV Contrast, patient injected with 65 mL of Isovue 370, axial images are obtained, coronal and sagittal reformatted images are reviewed. Three-D recons tructed images are created on an independent workstation and reviewed. Source images are reviewed. FINDINGS: Carotid/Vascular Structures: There appears to be a two-vessel arch with a common origin of the left s ubclavian and left common carotid arteries. Atherosclerotic calcifications at the bilateral carotid b ifurcations. Plaquing on the right causes narrowing which is calculated to be 62% based on NASCET 1 c riteria. Visual inspection appears more severe. Correlate with the patient's clinical symptoms. Cervical of [place]: Limited visualization at the skull base. Vertebral basilar system appears normal. Posterior cerebral vasculature is limited but unremarkable where visualized.. Internal carotid arter ies bifurcate normally into A1 and M1 segments. A2 segments are normal. The anterior communicating ar jay is patent. Posterior communicating arteries are not identified. IMPRESSION: 1. Moderate stenosis right internal carotid artery origin. This appears greater than 62% based on tere culation. Correlate with the patient clinical symptoms. 2. Mild stenosis left internal carotid artery. 3. Normal limited [place] of [place] NASCET criteria was used in interpretation of this exam?
== END | disposition home or self-care (01) ==
LOC: RADCTMAIN 14:55
PROVIDERS: ATTEND Internal Medicine Interventional Cardiology
DX: I65.23 Occlusion and stenosis of bilateral carotid arteries (principal)
CPT/HCPCS: 82565; 84520; 70498; 36415; Q9967

== ENCOUNTER → 2021-12-25 | Outpatient (CLI) | payer MEDICARE ==
--- NOTE | 2021-12-25 10:50 | US ---
EXAMINATION TYPE: US scrotum with doppler. Grayscale and color Doppler Duplex imaging performed of t elsa scrotum. DATE OF EXAM: 12/25/2021 COMPARISON: 08/2021 CLINICAL HISTORY: N50.89 SCROTAL SWELLING AND PAIN. Follow up for testicular pain and swelling, No pa in at this time EXAM MEASUREMENTS: TESTICLES: Right Testicle: 4.5 x 2.1 x 2.9 cm Left Testicle: 3.8 x 1.6 x 2.2 cm EPIDIDYMIS HEAD: Right Epididymis: 1.0 cm Left Epididymis: 1.0 cm Doppler performed to assess for testicular vascularity; good bilateral color flow and waveforms are s een. There is no evidence of testicular torsion. Presence of hydroceles: Right measuring 4.3 x 0.9 x 2.0cm Presence of varicoceles: Left Left testicle appears diffusely heterogeneous,decreased color flow noted, multiple cystic areas seen in epi head measuring 1.) 0.7cm 2.)0.4 cm IMPRESSION: 1. Persistent diffuse heterogeneous left testicle. Epididymal head cysts are also noted on the left. Findings could been the basis of an orchitis. Infiltrative process not entirely excluded. 2. Right hydrocele. Right testicle also appears mildly heterogeneous correlate for orchitis.
== END | disposition home or self-care (01) ==
LOC: RADUSWWP 09:22
PROVIDERS: ATTEND Urology
DX: N50.89 Other specified disorders of the male genital organs (principal); N43.3 Hydrocele, unspecified
CPT/HCPCS: 76870; 93975

== ENCOUNTER 2023-01-04 16:19 | Emergency (ER) | payer MEDICARE ==
[2023-01-04 16:33] VITALS: RESP 18; TEMP 98.7
--- NOTE | 2023-01-04 18:00 | ED ---
Recheck HPI - General Chief Complaint: Recheck/Abnormal Lab/Rx Stated Complaint: High Blood pressure Time Seen by Provider: 01/04/23 17:12 Source: patient, RN notes reviewed Mode of arrival: ambulatory Limitations: no limitations - History of Present Illness Initial Comments: This is an 82-year-old male who presents to the emergency department for elevat ed blood pressure. Patient states that his blood pressure is usually in the 140s over 70s, however when he measured it today it was in the 180s to 190s and did not seem to come down. He is on metoprolol 12.5 mg twice daily. Believes that he has been taking this dose for many years. Prior to today, he last checked his blood pressure 1 week ago. Denies any headaches, chest pain, shortness of breath, or visual changes. Denies any fevers, chills, sore throat, cough, dyspnea, chest pain, palpitations, abdominal pain, nausea, vomiting, diarrhea, back pain, or headaches. MD Complaint: other (Elevated BP) - Related Data Home Medications Medication Instructions Recorded Confirmed Omeprazole 20 mg PO DAILY 02/25/17 04/22/18 Aspirin 81 mg PO DAILY 09/30/17 04/22/18 Multivitamins, Thera [Multivitamin 1 tab PO DAILY 09/30/17 04/22/18 (formulary)] Benazepril [Lotensin] 30 mg PO DAILY 04/17/18 04/22/18 Doxazosin [Cardura] 4 mg PO DAILY 04/17/18 04/22/18 Isosorbide Mononitrate ER [Imdur] 30 mg PO DAILY 04/17/18 04/22/18 Metoprolol Tartrate [Lopressor] 25 mg PO BID 04/17/18 04/22/18 Previous Rx's Medication Instructions Recorded Atorvastatin [Lipitor] 80 mg PO HS #90 tab 04/23/18 Clopidogrel [Plavix] 75 mg PO DAILY #90 tab 04/23/18 Allergies Allergy/AdvReac Type Severity Reaction Status Date / Time cephalexin monohydrate Allergy Dyspnea- Verified 01/04/23 16:33 [From Keflex] WHEEZING hydrocodone [From Vicodin] Allergy NIGHTMARES Verified 01/04/23 16:33 hydromorphone [From Dilaudid] Allergy Hallucinati Verified 01/04/23 16:33 ons Penicillins Allergy Rash/Hives Verified 01/04/23 16:33 ANTIBACTERIAL SOAP Allergy Unknown Rash/Hives Uncoded 12/14/20 23:20 Review of Systems ROS Statement: Those systems with pertinent positive or pertinent negative responses have been documented in the HPI. ROS Other: All systems not noted in ROS Statement are negative. Past Medical History Past Medical History: Atrial Fibrillation, GERD/Reflux, Hyperlipidemia, Hypertension Additional Past Medical History / Comment(s): HX HEART MURMUR, A-FIB X1 , HTN (NO MEDS), RUPTURED DIVERTICULUM., BACK PAIN (SEES CHIROPRACTOR PRN)., STATES OCCASIONAL SOB., BILATERAL CATARACTS Surgery. 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 Past Anesthesia/Blood Transfusion Reactions: No Reported Reaction Past Psychological History: No Psychological Hx Reported Smoking Status: Never smoker Past Alcohol Use History: Occasional Past Drug Use History: None Reported - Past Family History Mother Family Medical History: No Reported History Additional Family Medical History / Comment(s): "Patient states she of a heart attack" Father Family Medical History: Cancer, Coronary Artery Disease (CAD) General Exam Limitations: no limitations General appearance: alert, in no apparent distress Head exam: Present: atraumatic, normocephalic, normal inspection Eye exam: Present: normal appearance, PERRL, EOMI. Absent: scleral icterus, conjunctival injection, periorbital swelling Respiratory exam: Present: normal lung sounds bilaterally. Absent: respiratory distress, wheezes, rales, rhonchi, stridor Cardiovascular Exam: Present: regular rate, normal rhythm, normal heart sounds. Absent: systolic murmur, diastolic murmur, rubs, gallop, clicks Neurological exam: Present: alert, oriented X3, CN II-XII intact Psychiatric exam: Present: normal affect, normal mood Skin exam: Present: warm, dry, intact, normal color. Absent: rash Course Vital Signs 01/04/23 01/04/23 01/04/23 16:30 17:14 20:16 Temperature 98.7 F Pulse Rate 60 61 66 Respiratory 18 18 18 Rate Blood Pressure 192/89 183/98 186/105 O2 Sat by Pulse 96 96 96 Oximetry Medical Decision Making - Medical Decision Making This is a 82-year-old male who presents to the emergency department for elevated blood pressure. Was pt. sent in by a medical professional or institution? @ -No Did you speak to anyone other than the patient for history? @ -No Did you review nursing and triage notes? @ -Yes, and I agree, it is accurate with regards to the patient's symptoms. Were old charts reviewed? @ -No Differential Diagnosis? @ -Differential Elevated Blood Pressure: Hypertensive urgency/emergency, medication noncompliance, infection, anxiety, pain, this is not meant to be an all-inclusive list. EKG interpreted by me (3pts min.)? @ -EKG interpreted by me demonstrating the following: Sinus rhythm. Ve ntricular rate 62 beats per minute, MN interval 144 ms, QRS duration 95 ms, QTC 391 ms. X-rays interpreted by me (1pt min.)? @ -Not obtained CT interpreted by me (1pt min.)? @ -Not obtained U/S interpreted by me (1pt. min.)? @ -Not obtained What testing was considered but not performed? (CT, X-rays, U/S, labs)? Why? @ -None What meds were considered but not given? Why? @ -None Did you discuss the management of the patient with other professionals? @ -No Did you reconcile home meds? @ -No Was smoking cessation discussed for >3mins.? @ -No Was critical care preformed (if so, how long)? @ -No Were there social determinants of health that impacted care today? How? (Homelessness, low income, unemployed, alcoholism, drug addiction, ansari sportation, low edu. Level, literacy, decrease access to med. care, intermediate, rehab)? @ -No Was there de-escalation of care discussed even if they declined? (Discuss DNR or withdrawal of care, Hospice)? @ -No What co-morbidities impacted this encounter? (DM, HTN, Smoking, COPD, CAD, Cancer, CVA, Hep., AIDS, mental health diagnosis, sleep apnea, morbid obesity)? @ -A-fib, HLD, HTN Was patient admitted / discharged? @ -Discharged. Lab work obtained and found to be nonactionable. Patient's blood pressure remained in the 180s to 190s systolically while in the emergency department. Discussed with the patient that given that his blood pressure has only been elevated to this extent that we know of today, it is not in his best interest to make medication adjustments at this time. He is instructed to check his blood pressure several times a day over the next week, record these values, and follow-up with his primary care provider to discuss if any medication valencia nges to be made. Undiagnosed new problem with uncertain prognosis? @ -None Drug Therapy requiring intensive monitoring for toxicity (Heparin, Nitro, Insulin, Cardizem)? @ -None Were any procedures done? @ -None Diagnosis/symptom? @ -HTN Acute, or Chronic, or Acute on Chronic? @ -Chronic Uncomplicated (without systemic symptoms) or Complicated (systemic symptoms)? @ -Uncomplicated Side effects of treatment? @ -None Exacerbation, Progression, or Severe Exacerbation] @ -Progression Poses a threat to life or bodily function? @ -If it remains elevated to this extent, it increases his risk for heart attacks and strokes. Return precautions reviewed in depth, the patient is instructed to return to the emergency department with any new, worsening, or concerning symptoms. Patient verbalized understanding. This case was discussed in detail with the attending ED physician, Dr. Gupta. Presentation, findings, and treatment plan discussed in detail as well. - Lab Data Result diagrams: 01/04/23 18:10 01/04/23 18:10 Lab Results 01/04/23 01/04/23 01/04/23 Range/Units 18:10 18:10 18:10 WBC 8.1 (3.8-10.6) k/uL RBC 4.39 (4.30-5.90) m/uL Hgb 13.1 (13.0-17.5) gm/dL Hct 38.3 L (39.0-53.0) % MCV 87.3 (80.0-100.0) fL MCH 29.7 (25.0-35.0) pg MCHC 34.1 (31.0-37.0) g/dL RDW 13.6 (11.5-15.5) % Plt Count 168 (150-450) k/uL MPV 7.8 Neutrophils % 69 % Lymphocytes % 18 % Monocytes % 7 % Eosinophils % 2 % Basophils % 0 % Neutrophils # 5.6 (1.3-7.7) k/uL Lymphocytes # 1.5 (1.0-4.8) k/uL Monocytes # 0.6 (0-1.0) k/uL Eosinophils # 0.1 (0-0.7) k/uL Basophils # 0.0 (0-0.2) k/uL PT 11.3 (9.0-12.0) sec INR 1.1 (<1.2) APTT 26.4 (22.0-30.0) sec Sodium 136 L (137-145) mmol/L Potassium 4.2 (3.5-5.1) mmol/L Chloride 102 (98-107) mmol/L Carbon Dioxide 24 (22-30) mmol/L Anion Gap 10 mmol/L BUN 18 (9-20) mg/dL Creatinine 1.10 (0.66-1.25) mg/dL Est GFR (CKD-EPI)AfAm 73 (>60 ml/min/1.73 sqM) Est GFR (CKD-EPI)NonAf 63 (>60 ml/min/1.73 sqM) Glucose 87 (74-99) mg/dL Calcium 9.3 (8.4-10.2) mg/dL Total Bilirubin 0.9 (0.2-1.3) mg/dL AST 37 (17-59) U/L ALT 23 (4-49) U/L Alkaline Phosphatase 71 (38-126) U/L Troponin I (0.000-0.034) ng/mL Total Protein 7.8 (6.3-8.2) g/dL Albumin 4.4 (3.5-5.0) g/dL 01/04/23 Range/Units 18:10 WBC (3.8-10.6) k/uL RBC (4.30-5.90) m/uL Hgb (13.0-17.5) gm/dL Hct (39.0-53.0) % MCV (80.0-100.0) fL MCH (25.0-35.0) pg MCHC (31.0-37.0) g/dL RDW (11.5-15.5) % Plt Count (150-450) k/uL MPV Neutrophils % % Lymphocytes % % Monocytes % % Eosinophils % % Basophils % % Neutrophils # (1.3-7.7) k/uL Lymphocytes # (1.0-4.8) k/uL Monocytes # (0-1.0) k/uL Eosinophils # (0-0.7) k/uL Basophils # (0-0.2) k/uL PT (9.0-12.0) sec INR (<1.2) APTT (22.0-30.0) sec Sodium (137-145) mmol/L Potassium (3.5-5.1) mmol/L Chloride (98-107) mmol/L Carbon Dioxide (22-30) mmol/L Anion Gap mmol/L BUN (9-20) mg/dL Creatinine (0.66-1.25) mg/dL Est GFR (CKD-EPI)AfAm (>60 ml/min/1.73 sqM) Est GFR (CKD-EPI)NonAf (>60 ml/min/1.73 sqM) Glucose (74-99) mg/dL Calcium (8.4-10.2) mg/dL Total Bilirubin (0.2-1.3) mg/dL AST (17-59) U/L ALT (4-49) U/L Alkaline Phosphatase (38-126) U/L Troponin I <0.012 (0.000-0.034) ng/mL Total Protein (6.3-8.2) g/dL Albumin (3.5-5.0) g/dL Disposition Clinical Impression: Hypertension Disposition: HOME SELF-CARE Instructions (If sedation given, give patient instructions): Hypertension (ED) Additional Instructions: Return to the emergency department with any new, worsening, or concerning symptoms. Check your blood pressure several times a day over the next week. Make sure you continue to keep a log of your blood pressures and bring this to your cardiology appointment for review. Follow up with your primary care provider in 1-2 days. Is patient prescribed a controlled substance at d/c from ED?: No Referrals: Greg Mann MD [Primary Care Provider] - 1-2 days
[2023-01-04 18:43] LABS: Basophils % (A) 0 %; Eosinophils # (A) 0.1 k/uL (0-0.7); Eosinophils % (A) 2 %; HCT 38.3 % (39.0-53.0); HGB 13.1 gm/dL (13.0-17.5); Lymphocytes # (A) 1.5 k/uL (1.0-4.8); Lymphocytes % (A) 18 %; MCH 29.7 pg (25.0-35.0); MCHC 34.1 g/dL (31.0-37.0); MCV 87.3 fL (80.0-100.0); Mean Platelet Volume 7.8; Monocytes # (A) 0.6 k/uL (0-1.0); Monocytes % (A) 7 %; Neutrophils # (A) 5.6 k/uL (1.3-7.7); Neutrophils % (A) 69 %; Platelet Count 168 k/uL (150-450); RBC 4.39 m/uL (4.30-5.90); RDW 13.6 % (11.5-15.5); WBC 8.1 k/uL (3.8-10.6)
[2023-01-04 18:59] LABS: ALT 23 U/L (4-49); AST 37 U/L (17-59); African American GFR (CKD) 73 (>60 ml/min/1.73 sqM); Albumin 4.4 g/dL (3.5-5.0); Alkaline Phosphatase 71 U/L (38-126); Anion Gap 10 mmol/L; Blood Urea Nitrogen 18 mg/dL (9-20); Calcium 9.3 mg/dL (8.4-10.2); Carbon Dioxide 24 mmol/L (22-30); Chloride 102 mmol/L (98-107); Glucose 87 mg/dL (74-99); Non-African American GFR(CKD) 63 (>60 ml/min/1.73 sqM); Potassium 4.2 mmol/L (3.5-5.1); Sodium 136 mmol/L (137-145); Total Bilirubin 0.9 mg/dL (0.2-1.3); Total Protein 7.8 g/dL (6.3-8.2)
[2023-01-04 19:25] LABS: INR 1.1 (<1.2); Partial Thromboplastin Time 26.4 sec (22.0-30.0); Prothrombin Time 11.3 sec (9.0-12.0)
[2023-01-04 20:19] VITALS: BP 186/105; PULSE 66
== END 2023-01-04 20:19 | disposition home or self-care (01) ==
LOC: EC 16:19
DX: I10 Essential (primary) hypertension (principal); I48.91 Unspecified atrial fibrillation; K21.9 Gastro-esophageal reflux disease without esophagitis; Z79.82 Long term (current) use of aspirin; Z79.899 Other long term (current) drug therapy; Z88.6 Allergy status to analgesic agent; Z88.0 Allergy status to penicillin; Z88.8 Allergy status to other drugs, medicaments and biological substances
CPT/HCPCS: 36415; 80053; 84484; 85025; 85610; 85730; 93005; 99283

== ENCOUNTER → 2024-01-16 | Outpatient (CLI) | payer MEDICARE ==
--- NOTE | 2024-02-04 13:44 | CT ---
Patient: Nathanael Alvarado D Ordering Physician: Unknown, Unknown ID: [id number] Phone, Pager: Phone: N/A Pager: N/A : [phone] Age/Gender: 83Y, M Primary Location: N/A Procedure: CTA NECK WO/W IV CO NTRAST [id number] Study Date: 01/16/2024 1:38:00 PM EXAMINATION TYPE: CT angio head neck DATE OF EXAM: 01/30/2024 HISTORY: Carotid stenosis COMPARISON: 10/22/2021 CT DLP: 456 mGycm. Automated Exposure Control for Dose Reduction was Utilized. TECHNIQUE: CTA scan of the neck is performed with IV Contrast, patient injected with 65 mL of Isovue 370, axial images are obtained, coronal and sagittal reformatted images are reviewed. Three-D recons tructed images are created on an independent workstation and reviewed. Source images are reviewed. FINDINGS: Carotid/Vascular Structures: There is a 3 vessel type arch, innominate however has a common origin fo r the subclavian and common carotid artery. Common carotid arteries bifurcate into internal and external carotid arteries. On the right there is severe stenosis calculated at 79%. Atheromatous plaque and calcification has a moderate stenosis of 5 8% on the left. Right vertebral artery is not identified within the neck. At the skull base and intracranial portion visualized some contrast is present. Consider subclavian steal on the right vertebral artery. Internal carotid arteries and left vertebral artery are patent to the skull base. Comparison: Degree of stenosis on the right has increased. Degree of stenosis on the left internal ca rotid artery has increased. IMPRESSION: 1. Severe stenosis of 79% proximal right internal carotid artery and moderate stenosis of 58% proxima l left internal carotid artery. 2. The degree of stenosis is increased for both internal carotid arteries. NASCET criteria was used in interpretation of this exam?
== END | disposition home or self-care (01) ==
LOC: RADCTMAIN 13:00
PROVIDERS: ATTEND Internal Medicine Interventional Cardiology
DX: I65.23 Occlusion and stenosis of bilateral carotid arteries (principal)
CPT/HCPCS: 70498; 36415; Q9967

== ENCOUNTER 2024-04-07 09:34 | Outpatient (CLI) | payer MEDICARE ==
[~2024-04-07 09:34] MED LIST changes: +ALPRAZolam 0.25 MG TAB PO PRN; +ALPRAZolam 0.5 MG TAB PO PRN; +CLOPIDOGREL 75 MG TAB PO PRN; -GENTAMICIN/PREDNISOL AC OPHTH OINT 3.5GM OPHTHALMIC ONE; -LACTATED RINGERS 1,000 ML IV SCH; -TIMOLOL 0.5% OPHTH DROPS 5 ML BTL OP ONE
[2024-04-07] MEDS: ASPIRIN 81 MG PO PRN (10:00)
[2024-04-07] MEDS: TICAGRELOR 90 MG TAB PO STA (10:00)
[2024-04-07] MEDS: SODIUM CHLORIDE 0.9% 1,000 ML in EMPTY BAG 1 BAG IV ONE (10:00)
[2024-04-07] MEDS: SODIUM CHLORIDE 0.9% 1,000 ML IV ONE (10:06)
[2024-04-07 10:08] VITALS: BP 222/105; PULSE 84; RESP 16; TEMP 98.7
[2024-04-07 10:25] LABS: Basophils % (A) 0 %; Eosinophils # (A) 0.1 k/uL (0-0.7); Eosinophils % (A) 1 %; HCT 38.3 % (39.0-53.0); HGB 12.8 gm/dL (13.0-17.5); Lymphocytes # (A) 1.7 k/uL (1.0-4.8); Lymphocytes % (A) 18 %; MCH 29.6 pg (25.0-35.0); MCHC 33.5 g/dL (31.0-37.0); MCV 88.4 fL (80.0-100.0); Mean Platelet Volume 8.2; Monocytes # (A) 0.4 k/uL (0-1.0); Monocytes % (A) 4 %; Neutrophils # (A) 7.1 k/uL (1.3-7.7); Neutrophils % (A) 73 %; Platelet Count 195 k/uL (150-450); RBC 4.34 m/uL (4.30-5.90); RDW 13.2 % (11.5-15.5); WBC 9.8 k/uL (3.8-10.6)
[2024-04-07 10:36] LABS: African American GFR (CKD) 50 (>60 ml/min/1.73 sqM); Anion Gap 13 mmol/L; Blood Urea Nitrogen 22 mg/dL (9-20); Calcium 9.6 mg/dL (8.4-10.2); Carbon Dioxide 22 mmol/L (22-30); Chloride 102 mmol/L (98-107); Glucose 101 mg/dL (74-99); Non-African American GFR(CKD) 43 (>60 ml/min/1.73 sqM); Sodium 137 mmol/L (137-145)
== END 2024-04-07 12:34 ==
LOC: UNDOADMIN 09:34 → 2ORMAIN 09:34 → OR 09:34 → UNDODISIN 12:34
PROVIDERS: ATTEND Internal Medicine Interventional Cardiology
DX: I65.21 Occlusion and stenosis of right carotid artery (principal); Z53.09 Procedure and treatment not carried out because of other contraindication
CPT/HCPCS: 80048; 85025

== ENCOUNTER 2024-04-08 10:42 | Inpatient (IN) | payer MEDICARE ==
[~2024-04-08 10:42] MED LIST changes: -ALPRAZolam 0.25 MG TAB PO PRN; -ALPRAZolam 0.5 MG TAB PO PRN; -CLOPIDOGREL 75 MG TAB PO PRN; +NITROGLYCERIN SL TABS 0.4 MG TAB SUBLINGUAL PRN; +RX INFO: IV CONTRAST WAS GIVEN 1 EACH MISC MISCELLANE PRN
[2024-04-08] MEDS: SODIUM CHLORIDE 0.9% 1,000 ML in EMPTY BAG 1 BAG IV ONE (11:09)
[2024-04-08] MEDS: TICAGRELOR 90 MG TAB PO STA (11:10)
[2024-04-08] MEDS: ASPIRIN 81 MG PO PRN (11:11)
[2024-04-08] MEDS: LIDOCAINE 1% INJ 10MG/ML (20 ML MDV) SQ ONE ×2 (12:02)
[2024-04-08] MEDS: hydrALAZINE HCL 20 MG/ML 1 ML VIAL IV ONE (12:14)
[2024-04-08] MEDS: HEPARIN SODIUM 1,000 UN/ML (10ML VL) IV ONE (12:17)
[2024-04-08] MEDS: HEPARIN SODIUM,PORCINE 10,000 UNIT in SODIUM CHLORIDE 0.9% 1,000 ML IRRIGATION ONE (12:45)
[2024-04-08] MEDS: IV FLUID CONTINUATION 1,000 ML IV ONE (12:45)
[2024-04-08] MEDS ORDERED: MAG HYDROX/AL HYDROX/SIMETH 30 ML CUP PO PRN (12:46)
[2024-04-08] MEDS ORDERED: ATROPINE SULFATE 0.1 MG/ML 10ML SYRINGE IV PRN (12:46)
[2024-04-08] MEDS: IOPAMIDOL-370 200ML BTL INJ ONE (12:46)
[2024-04-08] MEDS: HEPARIN SODIUM,PORCINE (1 ML) 2,500 UNIT in SODIUM CHLORIDE 0.9% 250 ML IRRIGATION ONE (12:46)
--- NOTE | 2024-04-08 13:40 | IR ---
EXAMINATION TYPE: IR angio carotid cerv RT DATE OF EXAM: 04/08/2024 12:58 PM COMPARISON: Pre Operative Images if available both CT/MRI or plain film CLINICAL INDICATION: Male, 83 years old with history of RIGHT CAROTID STENT PLACEMENT, 15.0MINS FLT, 0.123GY; TECHNIQUE: IR angio carotid cerv RT, multiple fluoroscopic images provided for procedure. Total fluoroscopy time: 15 min Total submitted images to PACS: 71 DAP: 0.123 mGym2 Gycm2 uGym2 cGycm2 or equivalent. FINDINGS: IMPRESSION: 1. Report was generated for administrative purposes only. 2. Please see the operative/procedural note for further details. [facility], , 04/08/2024 1:38 PM
[2024-04-08] MEDS: NOREPINEPHRINE 4 MG in SODIUM CHLORIDE 0.9% 250 ML IV SCH (13:47)
[2024-04-08] MEDS: NOREPINEPHRINE 4 MG in SODIUM CHLORIDE 0.9% 250 ML IV ONE (13:50)
[2024-04-08] MEDS: ACETAMINOPHEN TAB 325 MG TAB PO STA (14:41)
[2024-04-08] MEDS: SODIUM CHLORIDE 0.9% 1,000 ML IV SCH (15:30)
[2024-04-08 15:49] LABS: Glucose,Whole Blood 135 mg/dL (70-110)
[2024-04-08 16:35] LABS: Basophils % (A) 0 %; Eosinophils % (A) 0 %; HCT 35.6 % (39.0-53.0); Lymphocytes # (A) 1.3 k/uL (1.0-4.8); Lymphocytes % (A) 14 %; MCHC 33.8 g/dL (31.0-37.0); MCV 88.8 fL (80.0-100.0); Mean Platelet Volume 8.4; Monocytes # (A) 0.5 k/uL (0-1.0); Monocytes % (A) 6 %; Neutrophils # (A) 7.3 k/uL (1.3-7.7); Neutrophils % (A) 77 %; Platelet Count 180 k/uL (150-450); RBC 4.01 m/uL (4.30-5.90); RDW 13.4 % (11.5-15.5); WBC 9.6 k/uL (3.8-10.6)
[2024-04-08 16:45] LABS: African American GFR (CKD) 46 (>60 ml/min/1.73 sqM); Anion Gap 8 mmol/L; Blood Urea Nitrogen 23 mg/dL (9-20); Calcium 9.1 mg/dL (8.4-10.2); Carbon Dioxide 25 mmol/L (22-30); Chloride 103 mmol/L (98-107); Glucose 130 mg/dL (74-99); Non-African American GFR(CKD) 40 (>60 ml/min/1.73 sqM); Potassium 3.7 mmol/L (3.5-5.1); Sodium 136 mmol/L (137-145)
[2024-04-08] MEDS ORDERED: Potassium Replacement Protocol 1 EACH MISC MISCELLANE PRN (17:13)
[2024-04-08] MEDS: POTASSIUM CHLORIDE ER 10 MEQ TAB.ER.PRT PO SCH (18:25)
--- NOTE | 2024-04-08 20:42 | P.PCN ---
Date of Procedure: 04/08/24 Operative Findings: Carotid artery stenting Performing physician Pola Kim MD Procedure performed 1. Successful stenting of the right internal and common carotid artery using 810 Xact stent with an excellent angiographic results 2. Selective right common and right internal carotid artery angiogram 3. An aortic arch angiogram 4. 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 The right common femoral artery was cannulated using micropuncture technique under ultrasound guidance the micropuncture wire passed easily then a place to 90 cm shuttle sheath at the right common femoral artery after the artery was dilated using 6 Setswana dilator. Subsequently I did advance the sheath under fluoroscopy guidance over a 3 5 stiff Glidewire to the proximal descending aorta where the sheath was stationed right there. Subsequently under fluoroscopy guidance a pigtail catheter was advanced over a 3 5 stiff Glidewire to the ascending aorta were added and aortic arch angiogram and that showed a type II aortic arch where I was able to see the takeoff of the innominate artery. At that point anticoagulation was initiated using heparin with co ntinuous ACT monitoring. Subsequently I did engage the innominate artery using JB2 catheter. Subsequently I advanced a wire over the JB2 catheter to the proximal/mid right common carotid artery and subsequently the catheter was tracked over the wire and the sheath was advanced over the wire and the catheter. That was performed under fluoroscopy guidance carefully. After that the catheter and the wire were withdrawn out. A selective right common and right internal carotid artery angiogram which revealed critical disease involving the right internal carotid artery. I decided to pursue with an intervention. Under fluoroscopy guidance and using heparin for anticoagulation with continuous ACT monitoring I did deploy the filter wire in the right internal carotid artery distal to the lesion. Predilatation was performed using 4 mm balloon after that I did deploy 810 Xact stent where the stent was positioned under fluoroscopy guidance and deployed under fluoroscopy guidance. Postdilatation was performed using 5 mm balloon. Final angiogram showed good angiographic results and the procedure was completed with no complication. Subsequently I did exchange my long sheath into short sheath using a 3 5 stiff Glidewire before the selective right common femoral artery angiogram. The procedure was completed with no complication. The groin was closed using a 6 Setswana Angio-Seal. Postprocedure management ICU admission Monitor the blood pressure and consider vasopressors if we have to Dual antiplatelet therapy Follow-up with the patient
[2024-04-08] MEDS: ATORVASTATIN 40 MG TAB PO SCH (21:47)
[2024-04-08] MEDS: POTASSIUM CHLORIDE ER 20 MEQ TAB.ER PO SCH (21:47)
[2024-04-09 00:42] VITALS: TEMP 98.6
[2024-04-09 03:40] LABS: Basophils % (A) 0 %; Eosinophils # (A) 0.1 k/uL (0-0.7); Eosinophils % (A) 1 %; HCT 33.6 % (39.0-53.0); HGB 11.2 gm/dL (13.0-17.5); Lymphocytes # (A) 1.1 k/uL (1.0-4.8); Lymphocytes % (A) 13 %; MCH 29.7 pg (25.0-35.0); MCHC 33.2 g/dL (31.0-37.0); MCV 89.3 fL (80.0-100.0); Mean Platelet Volume 9.2; Monocytes # (A) 0.7 k/uL (0-1.0); Monocytes % (A) 9 %; Neutrophils # (A) 5.8 k/uL (1.3-7.7); Neutrophils % (A) 74 %; Platelet Count 161 k/uL (150-450); RBC 3.76 m/uL (4.30-5.90); RDW 13.5 % (11.5-15.5); WBC 7.9 k/uL (3.8-10.6)
[2024-04-09 03:56] LABS: African American GFR (CKD) 49 (>60 ml/min/1.73 sqM); Anion Gap 7 mmol/L; Blood Urea Nitrogen 24 mg/dL (9-20); Calcium 8.8 mg/dL (8.4-10.2); Carbon Dioxide 22 mmol/L (22-30); Chloride 106 mmol/L (98-107); Glucose 104 mg/dL (74-99); Non-African American GFR(CKD) 42 (>60 ml/min/1.73 sqM); Potassium 4.2 mmol/L (3.5-5.1); Sodium 135 mmol/L (137-145)
[2024-04-09] MEDS ORDERED: TICAGRELOR 90 MG TAB PO PRN (07:00)
--- NOTE | 2024-04-09 07:29 | P.DS ---
Providers Date of admission: 04/08/24 10:42 Attending physician: Pola Kim Primary care physician: Greg Pereira [facility] Course: The patient is a pleasant 83-year-old gentleman who underwent yesterday successful stenting of the right internal carotid artery with an excellent angiographic results and with no complication from right groin approach He was seen and evaluated this morning with he is asymptomatic and hemodynamically stable beside the pressure being slightly elevated. I am going to continue the current medical regimen and restart the patient back on a small dose of losartan which is a dose at home along with anticoagulation which she wa s receiving and also antiplatelet. The right groin is soft and nontender with no bruises The rest of the physical examination is unremarkable Patient is going to be discharged home and I will follow-up with the patient next week in the office Plan - Discharge Summary New Discharge Prescriptions: New Ticagrelor [Brilinta] 90 mg PO ONCE PRN #180 tab PRN Reason: Pre-Op Continue Omeprazole 20 mg PO DAILY Aspirin 81 mg PO DAILY Losartan [Cozaar] 25 mg PO DAILY PRN PRN Reason: Hypertension Apixaban [Eliquis] 2.5 mg PO BID Rosuvastatin Calcium 40 mg PO DAILY Discharge Medication List Omeprazole 20 mg PO DAILY 02/25/17 [History] Aspirin 81 mg PO DAILY 09/30/17 [History] Apixaban [Eliquis] 2.5 mg PO BID 04/06/24 [History] Losartan [Cozaar] 25 mg PO DAILY PRN 04/06/24 [History] Rosuvastatin Calcium 40 mg PO DAILY 04/06/24 [History] Ticagrelor [Brilinta] 90 mg PO ONCE PRN #180 tab 04/09/24 [Rx] Follow up Appointment(s)/Referral(s): Pola Kim MD [STAFF PHYSICIAN] - 1 Week (Office will call with appointment date and time)
[2024-04-09] MEDS: TICAGRELOR 90 MG TAB PO SCH (08:34)
[2024-04-09] MEDS: CLOPIDOGREL 75 MG TAB PO SCH (08:34)
[2024-04-09 08:45] VITALS: BP 131/80; PULSE 76; RESP 20
== END 2024-04-09 09:50 | disposition home or self-care (01) | DRG 36 ==
LOC: 2ORMAIN 10:42 → 2SICU 14:15
PROVIDERS: ADMIT Internal Medicine Interventional Cardiology; ATTEND Internal Medicine Interventional Cardiology
PROC: B41F1ZZ Fluoroscopy of Right Lower Extremity Arteries using Low Osmolar Contrast (ICD-10-PCS; 2024-04-08)
PROC: B3161ZZ Fluoroscopy of Right Internal Carotid Artery using Low Osmolar Contrast (ICD-10-PCS; 2024-04-08)
PROC: B3131ZZ Fluoroscopy of Right Common Carotid Artery using Low Osmolar Contrast (ICD-10-PCS; 2024-04-08)
PROC: 037H3DZ Dilation of Right Common Carotid Artery with Intraluminal Device, Percutaneous Approach (ICD-10-PCS; principal; 2024-04-08 12:00)
PROC: 037K3DZ Dilation of Right Internal Carotid Artery with Intraluminal Device, Percutaneous Approach (ICD-10-PCS; 2024-04-08 12:00)
DX: I65.21 Occlusion and stenosis of right carotid artery (principal); E78.5 Hyperlipidemia, unspecified; I10 Essential (primary) hypertension; I25.10 Atherosclerotic heart disease of native coronary artery without angina pectoris; I48.0 Paroxysmal atrial fibrillation; Z88.0 Allergy status to penicillin; Z88.5 Allergy status to narcotic agent; Z88.1 Allergy status to other antibiotic agents
CPT/HCPCS: 37215; 76937; 80048; 83735; 84132; 85025